=== PATIENT | female | born 1990 | race Caucasian/White ===

== ENCOUNTER 2020-01-25 14:28 | Emergency (ER) | payer OTHER, SELFPAY ==
[~2020-01-25] VITALS: Ht 170.2 cm; Wt 108.9 kg
[2020-01-25 14:28] VITALS: BP 143/97
[2020-01-25] MEDS ORDERED: methylPREDNISolone SS 125 MG/2 ML VIAL IM ONE (15:05)
[2020-01-25] MEDS ORDERED: FAMOTIDINE 20 MG TAB PO ONE (15:05)
[2020-01-25] MEDS ORDERED: diphenhydrAMINE 50 MG CAP PO ONE (15:05)
[2020-01-25] MEDS ORDERED: FAMOTIDINE 20 MG TAB PO STA (15:08)
[2020-01-25] MEDS ORDERED: methylPREDNISolone SS 125 MG/2 ML VIAL IM STA (15:08)
[2020-01-25] MEDS ORDERED: diphenhydrAMINE 50 MG CAP PO STA (15:08)
[2020-01-25 16:21] VITALS: BP 139/82
== END 2020-01-25 16:21 | disposition home or self-care (01) ==
LOC: MED 14:28 → EEVIPCON 14:28 → MED 16:21
DX: R07.89 Other chest pain (principal); Z20.828 Contact with and (suspected) exposure to other viral communicable diseases; R21 Rash and other nonspecific skin eruption
CPT/HCPCS: 71045; 93005; 96372; 99285; J2930; Q0163; U0003